=== PATIENT | male | born 1945 | race African-American/Black ===

== ENCOUNTER 2019-09-21 09:07 | Day surgery (SDC) | payer OTHER ==
--- NOTE | 2019-09-21 09:17 | RAD REPORT ---
EXAM DESCRIPTION: RAD - Chest Pa And Lat (2 Views) - 09/21/2019 9:09 am CLINICAL HISTORY: preop Chest pain. COMPARISON: No comparisons FINDINGS: The lungs are clear. The heart is upper limit of normal in size. No displaced fractures.
[2019-09-21 09:19] LABS: Basophils % 0.5 % (0-1.3); Hematocrit 40.5 % (39.6-49.0); Lymphocytes % 17.8 % (15.3-44.8)
[2019-09-21 09:30] LABS: Potassium 3.7 mmol/L (3.5-5.1)
[2019-09-21] MEDS ORDERED: CEFAZOLIN/SWI 1gm 1 GM/10 ML SYR ONE (09:34)
[2019-09-21] MEDS ORDERED: Ringers Lactate 1,000 ML IV ONE (09:34)
[2019-09-21] MEDS ORDERED: LIDOCAINE 1% MPF 30 ML VIAL ONE (09:52)
[2019-09-21] MEDS ORDERED: PROPOFOL 200 MG/20 ML VIAL IV ONE (09:56)
[2019-09-21] MEDS ORDERED: MIDAZOLAM HCL 2 MG/2 ML INJ ONE (09:56)
[2019-09-21] MEDS ORDERED: LIDOCAINE 2% MPF 5 ML VIAL ONE (09:56)
[2019-09-21] MEDS ORDERED: Mastisol Adhesive Liq ONE (10:35)
[2019-09-21] MEDS ORDERED: CODEINE 30MG/APAP 300MG TAB ONE (11:17)
[2019-09-21 12:01] VITALS: BP 160/75; TEMP 97.4; O2SAT 97
--- NOTE | 2019-09-21 18:36 | EKG ---
Test Date: 2019-09-21 Test Time: 08:43:37 [employer]: RIKKI MEASUREMENT RESULTS: Intervals: Rate: 71 NH: 162 QRSD: 132 QT: 410 QTc: 445 [place]: P: 71 NH: 162 QRS: -45 T: 65 INTERPRETIVE STATEMENTS: Normal sinus rhythm Possible Left atrial enlargement Right bundle branch block Left anterior fascicular block Bifascicular block Left ventricular hypertrophy with repolarization abnormality Abnormal ECG No previous ECG available for comparison Electronically Signed On 09-21-19 18:35:03 SENIOR CLINICAL DATA MANAGER by Crispin Llanes
--- NOTE | 2019-09-21 21:39 | OP ---
Date of Procedure: 09/21/2019 Surgeon: Darron Francisco MD Preoperative Diagnosis: Right arm mass. Postoperative Diagnosis: Right arm mass. Procedure: Excision of right arm mass 3 x 2 cm with layered closure. Length of the closure 3 cm. Estimated Blood Loss: Minimal. Specimens: Right arm mass. Findings: Benign cyst. Anesthesia: MAC. Complications: None. Disposition: The patient tolerated the procedure in stable condition, taken to Recovery in good gene ral condition. Procedure In Detail: The patient was brought to the OR and placed in supine position. MAC anesthesi a was begun. Patient was prepped and draped in usual sterile fashion. Lidocaine 1% infiltrated loca lly. A 15-blade was used to make a 3 cm incision in the antecubital fossa on the lateral side. Subc utaneous tissue divided and a 2 cm cyst identified, excised, sent to Pathology. Specimen appeared to be benign. Wound was irrigated, bleeding controlled with cautery. Then 3-0 chromic used to approxi mate the subcutaneous tissue and also to close the skin. Sterile dressing was applied. Patient was awakened and taken to Recovery in good general condition. Discharge Note: Patient will go to Day Surgery, then home when stable. Disposition: Home. Condition: Stable. Discharge Instructions: Resume home medications and diet. Activity as tolerated. No heavy lifting. Remove outer dressing in 2 days. Shower. Keep wound clean and dry. Keep Steri-Strips on at all t imes. Follow up in my office in 1 week. Call for appointment. Tylenol no. 3 one tablet p.o. q.4 p. r.n. pain. /MATTHEWL Voice ID: [id number] Report ID: [id number]
== END 2019-09-21 11:55 | disposition home or self-care (01) ==
LOC: OR 09:07
PROVIDERS: ATTEND Surgery
PROC: 0JBG0ZZ Excision of Right Lower Arm Subcutaneous Tissue and Fascia, Open Approach (ICD-10-PCS; principal; 2019-09-21 10:00)
DX: L72.9 Follicular cyst of the skin and subcutaneous tissue, unspecified (principal); I10 Essential (primary) hypertension
CPT/HCPCS: 93005; 85025; 80048; 36415; 88304; 71046; 11403; J2704; J2250; J0690; J7120